=== PATIENT | male | born 1995 ===

== ENCOUNTER 2017-11-26 08:15 | Emergency (ER) | payer OTHER ==
[2017-11-26 08:15] VITALS: BMI 28.8
[2017-11-26 08:21] VITALS: O2SAT 100
[2017-11-26] MEDS ORDERED: Iohexol 240 (50 ml) PO STA (08:41)
[2017-11-26] MEDS ORDERED: Sodium Chloride 0.9% 1,000 ML IV ONE (08:41)
--- NOTE | 2017-11-26 08:41 | C.PDOC ---
History Of Present Illness 22 year old male presents to ED for evaluation of mild intermittent left lower quadrant abdominal pain for the past week. Patient reports having 4 episodes of diarrhea for the past 3 days. Notes that last night he noticed bright red blood mixed with the stool. Denies taking any medications for his symptoms. Otherwise , denies recent travel, nausea, vomiting, fever, chills, back pain, or urinary symptoms. Time Seen by Provider: 11/26/17 08:33 Chief Complaint (Nursing): Abdominal Pain History Per: Patient History/Exam Limitations: no limitations Onset/Duration Of Symptoms: Days, Intermittent Episodes Current Symptoms Are (Timing): Still Present Severity: Mild Location Of Pain/Discomfort: LLQ Radiation Of Pain To:: None Quality Of Discomfort: "Pain" Associated Symptoms: Diarrhea. denies: Loss Of Appetite, Back Pain, Chest Pain , Constipation, Urinary Symptoms Exacerbating Factors: None Alleviating Factors: None Recent travel outside of the [place]: No Additional History Per: Patient Past Medical History Reviewed: Historical Data, Nursing Documentation, Vital Signs Vital Signs: Last Vital Signs Temp 98.3 F 11/26/17 08:20 Pulse 80 11/26/17 08:20 Resp 16 11/26/17 08:20 BP 158/97 H 11/26/17 08:20 Pulse Ox 100 11/26/17 11:09 Family History: States: Unknown Family Hx - Social History Hx Alcohol Use: No Hx Substance Use: No - Immunization History Hx Tetanus Toxoid Vaccination: Yes Hx Influenza Vaccination: Yes Hx Pneumococcal Vaccination: Yes Review Of Systems Except As Marked, All Systems Reviewed And Found Negative. Constitutional: Negative for: Fever, Chills Gastrointestinal: Positive for: Abdominal Pain, Diarrhea, Hematochezia. Negative for: Nausea, Vomiting, Constipation, Hematemesis Genitourinary: Negative for: Dysuria, Frequency, Hematuria Musculoskeletal: Negative for: Back Pain Neurological: Negative for: Headache, Dizziness Physical Exam - Physical Exam Appears: Non-toxic, No Acute Distress (comfortable) Skin: Normal Color, Warm, Dry Head: Atraumatic, Normacephalic Eye(s): bilateral: Normal Inspection Oral Mucosa: Moist Neck: Normal ROM, Supple Cardiovascular: Rhythm Regular, No Murmur Respiratory: Normal Breath Sounds, No Rales, No Rhonchi, No Wheezing Gastrointestinal/Abdominal: Soft, Tenderness (mild LLQ), No Distention, No Guarding, No Rebound Back: No CVA Tenderness Extremity: Normal ROM, No Pedal Edema, No Deformity Neurological/Psych: Oriented x3, Normal Speech ED Course And Treatment - Laboratory Results Result Diagrams: 11/26/17 08:59 11/26/17 08:59 O2 Sat by Pulse Oximetry: 100 (RA) Pulse Ox Interpretation: Normal - CT Scan/US Abd & Pelvis CT Other Rad Studies (CT/US): Read By Radiologist, Radiology Report Reviewed CT/US Interpretation: PROCEDURE: CT Abdomen and Pelvis with oral and IV contrast. HISTORY: LLQ abd pain. COMPARISON: None available. TECHNIQUE: Contiguous axial images of the abdomen and pelvis. Oral and IV contrast was administered. Coronal and Sagittal reformats generated and reviewed. Contrast dose: 100 mL Visipaque. Radiation dose: Total exam DLP = 728.67 mGy-cm. This CT exam was performed using one or more of the following dose reduction techniques: Automated exposure control, adjustment of the mA and/or kV according to patient size, and/or use of iterative reconstruction technique. FINDINGS: LOWER THORAX: No visible consolidation, pleural effusion, or pneumothorax. LIVER: Unremarkable. GALLBLADDER AND BILE DUCTS: Unremarkable. PANCREAS: Unremarkable. SPLEEN: Unremarkable. ADRENALS: Unremarkable. KIDNEYS AND URETERS: The kidneys enhance symmetrically. No hydronephrosis or obstructing renal calculus. 15 mm left renal hypodensity, indeterminate. BLADDER: The urinary bladder appears unremarkable. REPRODUCTIVE: Unremarkable. APPENDIX: The appendix appears within normal limits of caliber. No secondary signs of acute appendicitis. BOWEL: The stomach is nondistended. The bowel loops appear within normal limits of caliber without evidence of intestinal obstruction. Moderate constipation. PERITONEUM: No significant free fluid. No definite free air. LYMPH NODES: No bulky lymphadenopathy identified. VASCULATURE: No aortic aneurysm. BONES: No acute osseous abnormality is detected. OTHER FINDINGS: None. IMPRESSION: Moderate constipation. Low-density left renal lesion measures approximately 15 mm, indeterminate; renal ultrasound may be considered for further evaluation. Medical Decision Making Medical Decision Making: Impression: LLQ abdominal pain with diarrhea Plan: * Labs * CT A/P * IV NS * Pepcid, toradol Progress: Lab was called at 09:35 to confirm potassium result of 5.7, was informed that specimen was slightly hemolyzed. Labs otherwise normal CT shows moderate constipation Re-Eval: 1112 Patient resting comfortbly on stretcher in no distress. He reports feeling better, abdominalpain has resolved. Abdomen is soft without any tenderness, guarding or rebound. He has no fever and vital signs are stable. Discussed results with patient, and copy of report was provided. Patient feels comfortable going home and will be discharged. Patient given follow up instructions and rx sent to the pharmacy. Instructed to return to ER if symptoms worsen or new symptoms arise. Disposition Counseled Patient/Family Regarding: Studies Performed, Diagnosis, Need For Followup, Rx Given - Disposition [facility]errals: [facility] [Outside] [facility] [Outside] Disposition: HOME/ ROUTINE Disposition Time: 11:08 Condition: IMPROVED Additional Instructions: Your prescriptions were sent to [facility], please take as directed You can take Maalox or Pepcid complete over the counter as needed for any pain Follow up with your primary medical doctor or clinic in 2-5 days for further evaluation. Return to the emergency department at any time if symptoms persist or worsen. Valerie recetas fueron enviadas a la farmacia de [facility], por favor, tome segn las indicaciones Puede roma Maalox o Pepcid por completo en el mostrador segn sea necesario para cualquier dolor Dona un seguimiento con spencer mdico primario o clnica en 2-5 santamaria para zain evaluacin adicional. Regrese al departamento de emergencia en cualquier momento si los sntomas persisten o empeoran. Prescriptions: Docusate [Colace] 100 mg PO TID PRN #30 cap PRN Reason: Constipation Magnesium Citrate [Citrate of Mag] 300 ml PO ONCE PRN #1 bottle PRN Reason: Constipation Instructions: High Fiber Diet (ED), Acute Abdominal Pain (DC) Forms: [employer] (Albanian) Print Language: KYRGYZ - POA Present On Arrival: None - Clinical Impression Clinical Impression: Constipation, LLQ abdominal pain - PA / INTERMEDIATE ACCOUNTANT / Resident Statement MD/DO has reviewed & agrees with the documentation as recorded. - Scribe Statement The provider has reviewed the documentation as recorded by the Joel Luis All medical record entries made by the Lynneibemili were at my direction and personally dictated by me. I have reviewed the chart and agree that the record accurately reflects my personal performance of the history, physical exam, medical decision making, and the department course for this patient. I have also personally directed, reviewed, and agree with the discharge instructions and disposition.
[2017-11-26] MEDS ORDERED: Iohexol 240 (50 ml) ONE (08:51)
[2017-11-26] MEDS ORDERED: Sodium Chloride 0.9% 1,000 ML ONE (08:51)
[2017-11-26 09:02] LABS: BASO # 0.1 K/uL (0.0-0.2); BASO % 0.8 % (0.0-2.0); EOS # 0.4 K/uL (0.0-0.7); EOS % 5.1 % (0.0-4.0); HEMOGLOBIN 13.7 g/dL (12.0-18.0); LYMPH # 1.6 K/uL (1.0-4.3); LYMPH % 22.5 % (20.0-40.0); MEAN CELL VOLUME 79.4 fL (80.0-94.0); MEAN CORPUSCULAR HEMOGLOBIN 26.2 pg (27.0-31.0); MEAN CORPUSCULAR HGB CONC 33.1 g/dL (33.0-37.0); MEAN PLATELET VOLUME 8.8 fL (7.2-11.7); MONO # 0.7 K/uL (0.0-0.8); MONO % 9.9 % (0.0-10.0); NEUT # 4.4 K/uL (1.8-7.0); NEUT % 61.7 % (50.0-75.0); RBC 5.2 Mil/uL (4.40-5.90); RED CELL DISTRIBUTION WIDTH 15.7 % (11.5-14.5); WHITE BLOOD COUNT 7.1 K/uL (4.8-10.8)
[2017-11-26 09:17] LABS: CALCIUM 8.3 mg/dl (8.6-10.4); GFR AFRICAN-AMERICAN > 60; GFR NON-AFRICAN AMERICAN > 60; LIPASE 89 U/L (23-300)
[2017-11-26 09:20] LABS: ALB/GLOB RATIO 1.1 (1.0-2.1); ALBUMIN 3.6 g/dL (3.5-5.0); ALT/SGPT 28 U/L (21-72); AST/SGOT 37 U/L (17-59); BLOOD UREA NITROGEN 12 mg/dL (9-20)
[2017-11-26 10:03] LABS: URINE BILIRUBIN NEGATIVE (NEGATIVE); URINE BLOOD NEGATIVE (NEGATIVE); URINE CLARITY Clear (Clear); URINE COLOR Straw (YELLOW); URINE GLUCOSE (UA) NORMAL (Normal); URINE LEUKOCYTE ESTERASE NEG Leu/uL (Negative); URINE NITRATE NEGATIVE (NEGATIVE); URINE PROTEIN NEGATIVE (NEGATIVE); URINE UROBILINOGEN NORMAL mg/dL (0.2-1.0)
[2017-11-26] MEDS ORDERED: Iodixanol 320 MG/ML 100 ML BOTTLE IV ONE (10:20)
--- NOTE | 2017-11-26 10:59 | CT ---
PROCEDURE: CT Abdomen and Pelvis with oral and IV contrast. HISTORY: LLQ abd pain COMPARISON: None available. TECHNIQUE: Contiguous axial images of the abdomen and pelvis. Oral and IV contrast was administered. Coronal and Sagittal reformats generated and reviewed. Contrast dose: 100 mL Visipaque Radiation dose: Total exam DLP = 728.67 mGy-cm. This CT exam was performed using one or more of the following dose reduction techniques: Automated exposure control, adjustment of the mA and/or kV according to patient size, and/or use of iterative reconstruction technique. FINDINGS: LOWER THORAX: No visible consolidation, pleural effusion, or pneumothorax. LIVER: Unremarkable. GALLBLADDER AND BILE DUCTS: Unremarkable. PANCREAS: Unremarkable. SPLEEN: Unremarkable. ADRENALS: Unremarkable. KIDNEYS AND URETERS: The kidneys enhance symmetrically. No hydronephrosis or obstructing renal calculus. 15 mm left renal hypodensity, indeterminate. BLADDER: The urinary bladder appears unremarkable. REPRODUCTIVE: Unremarkable. APPENDIX: The appendix appears within normal limits of caliber. No secondary signs of acute appendicitis. BOWEL: The stomach is nondistended. The bowel loops appear within normal limits of caliber without evidence of intestinal obstruction. Moderate constipation. PERITONEUM: No significant free fluid. No definite free air. LYMPH NODES: No bulky lymphadenopathy identified. VASCULATURE: No aortic aneurysm. BONES: No acute osseous abnormality is detected. OTHER FINDINGS: None. IMPRESSION: Moderate constipation. Low-density left renal lesion measures approximately 15 mm, indeterminate; renal ultrasound may be considered for further evaluation.
[2017-11-26 11:19] VITALS: BP 121/80; PULSE 78; RESP 18; TEMP 98
== END 2017-11-26 11:18 | disposition home or self-care (01) ==
LOC: C.ER 08:15
DX: K59.00 Constipation, unspecified (principal); R10.32 Left lower quadrant pain
CPT/HCPCS: 74177; 80053; 81001; 83690; 85025; 96361; 96374; 96375; 99285; J1885; J7040; Q9966; Q9967

== ENCOUNTER 2018-08-31 08:03 | Day surgery (SDC) | payer MEDICAID ==
[2017-12-30 21:39] VITALS: BMI 28.8
[2018-08-31] MEDS ORDERED: Propofol 10 mg/ml Inj (20 ML) ONE (09:38)
--- NOTE | 2018-08-31 09:41 | CP.SDSHP ---
Same Day Surgery H & P - History Proposed Procedure: colonoscopy with biopsies Pre-Op Diagnosis: gastrointestinal bleeding - Previous Medical/Surgical History Comments: ulcerative colitis Previous Surgical History: none - Allergies Allergies: Allergies No Known Allergies Allergy (Verified 08/29/18 09:40) - Current Medications Current Medications: Apriso - Physical Exam General Appearance: wdwn nad Vital Signs: Vital Signs 08/31/18 08:21 Temperature 98.6 F Pulse Rate 73 Respiratory 19 Rate Blood Pressure 155/58 H O2 Sat by Pulse 99 Oximetry Mental Status: Alert & Oriented x3 Heart: WNL Lungs: WNL GI: WNL - {Optional Preform as Required} Rectal: WNL - Impression Impression: gastrointestinal bleeding Pt. Evaluated Today:Candidate for Anesthesia & Procedure: Yes - Date & Time Date: 08/31/18 Time: 09:40 Short Stay Discharge - Short Stay Discharge Admitting Diagnosis/Reason for Visit: ULCERATIVE (CHRONIC) PANCOLITIS WITHOUT COMPLICATI Disposition: HOME/ ROUTINE
[2018-08-31 10:27] VITALS: TEMP 98
[2018-08-31 10:28] VITALS: O2SAT 100
[2018-08-31 10:42] VITALS: RESP 13
[2018-08-31 11:05] VITALS: BP 110/67; PULSE 58
== END 2018-08-31 11:00 | disposition home or self-care (01) ==
LOC: C.ENDO 08:03
PROVIDERS: ATTEND Internal Medicine Gastroenterology
DX: K92.1 Melena (principal); K52.89 Other specified noninfective gastroenteritis and colitis; K62.89 Other specified diseases of anus and rectum
CPT/HCPCS: 45380; 83993; 87045; 87230; 88305; J2704